=== PATIENT | female | born 1995 | race African-American/Black ===

== ENCOUNTER → 2017-03-19 | Outpatient (CLI) | payer OTHER ==
--- NOTE | 2017-03-20 15:29 | REP ---
NUCLEAR THYROID UPTAKE AND SCAN: Following the oral administration of 345 microcuries of I-123 as sodium iodine, thyroid uptake is measured. The 24-hour uptake is 29.2% which is within the normal range of 25 to 35%. Thyroid scan shows both lobes to be approximately 5 cm in length. I see no focal hot or cold nodule. IMPRESSION: Essentially unremarkable thyroid uptake and scan. Signed by Kyrie Conley MD 03/20/2017 05:25 P
== END ==
LOC: M RAD 12:37
PROVIDERS: ATTEND Internal Medicine Endocrinology, Diabetes & Metabolism
DX: R94.6 Abnormal results of thyroid function studies (principal)

== ENCOUNTER 2017-07-07 18:12 | Emergency (ER) | payer OTHER ==
[~2017-07-07] VITALS: Ht 157.5 cm; Wt 60.5 kg
[2017-07-07] MEDS ORDERED: ACETAMINOPHEN 325 MG TAB PO ONE (20:30)
[2017-07-07] MEDS ORDERED: KETOROLAC 60 MG/2 ML VIAL (J1885) IM ONE (20:30)
[2017-07-07] MEDS ORDERED: METOCLOPRAMIDE 10 MG TAB PO ONE (20:30)
[2017-07-07 20:55] VITALS: BP 112/68
== END 2017-07-07 20:57 | disposition home or self-care (01) ==
LOC: M ED 18:12
DX: G43.909 Migraine, unspecified, not intractable, without status migrainosus (principal)
CPT/HCPCS: 96372; 99282; J1885

== ENCOUNTER 2018-08-25 21:18 | Emergency (ER) | payer OTHER ==
[2018-08-25] MEDS: CEPHALEXIN 500 MG CAP PO (21:46)
== END 2018-08-25 22:28 | disposition home or self-care (01) ==
LOC: M ED 21:18
DX: L03.315 Cellulitis of perineum (principal)
CPT/HCPCS: 99283